=== PATIENT | male | born 1940 | race Caucasian/White ===

== ENCOUNTER 2017-10-31 14:14 | Emergency (ER) | payer MEDICARE ==
[2017-10-31 14:31] VITALS: BMI 22.1
--- NOTE | 2017-10-31 14:39 | ED PDOC ---
Arrival/HPI - General Time Seen by Provider: 10/31/17 14:19 Historian: Patient - History of Present Illness Narrative History of Present Illness (Text): 10/31/17 14:30 76 year old male, whose past medical history includes CVA 3 years ago and diabetes, presents to the emergency department complaining of diarrhea for the past 7 days. Patient reports he goes 4-5 times a day. Patient took Pepto-bismol with no relief. Patient states his PMD Dr. Peng told him to come to the ER for evaluation. Patient denies any fever, chills, chest pain, abdominal pain, nausea , vomiting, urinary symptoms, back pain, neck pain, headache, dizziness, or any other complaints. PMD: Dr. Peng Time/Duration: 1 week Symptom Onset: Gradual Symptom Course: Unchanged Activities at Onset: Light Context: Home Past Medical History - Provider Review Nursing Documentation Reviewed: Yes Family/Social History - Physician Review Nursing Documentation Reviewed: Yes Family/Social History: No Known Family HX Allergies/Home Meds Allergies/Adverse Reactions: Allergies No Known Allergies Allergy (Verified 10/31/17 14:30) Home Medications: Home Meds Medication Instructions Recorded Confirmed Unobtainable 10/31/17 10/31/17 Review of Systems - Physician Review All systems were reviewed & negative as marked: Yes - Review of Systems Constitutional: absent: Fevers, Other (Chills) Respiratory: absent: SOB Cardiovascular: absent: Chest Pain Gastrointestinal: Diarrhea. absent: Abdominal Pain, Nausea, Vomiting Genitourinary Male: absent: Dysuria, Frequency, Hematuria Musculoskeletal: absent: Back Pain, Neck Pain Neurological: absent: Headache, Dizziness Physical Exam Vital Signs Reviewed: Yes Vital Signs Temp Pulse Resp BP Pulse Ox 10/31/17 14:30 99.1 F 87 16 170/85 H 98 Temperature: Afebrile Blood Pressure: Hypertensive Pulse: Regular Respiratory Rate: Normal Appearance: Positive for: Well-Appearing, Non-Toxic, Comfortable Pain Distress: None Mental Status: Positive for: Alert and Oriented X 3 - Systems Exam Head: Present: Atraumatic, Normocephalic, Other (Left-sided facial weakness) Pupils: Present: PERRL, Other (Whiteness over left cornea) Extroacular Muscles: Present: EOMI Conjunctiva: Present: Normal Mouth: Present: Moist Mucous Membranes Neck: Present: Normal Range of Motion Respiratory/Chest: Present: Clear to Auscultation, Good Air Exchange. No: Respiratory Distress, Accessory Muscle Use Cardiovascular: Present: Regular Rate and Rhythm, Normal S1, S2. No: Murmurs Abdomen: Present: Normal Bowel Sounds. No: Tenderness, Distention, Peritoneal Signs Back: Present: Normal Inspection Upper Extremity: Present: Other (Left-sided contraction 0/5 strength). No: Cyanosis, Edema Lower Extremity: Present: Other (Full stregnth of lower extremities. Contraction of left foot ). No: Edema Neurological: Present: GCS=15, CN II-XII Intact, Speech Normal Skin: Present: Warm, Dry, Normal Color. No: Rashes Psychiatric: Present: Alert, Oriented x 3, Normal Insight, Normal Concentration Medical Decision Making ED Course and Treatment: 10/31/17 14:23 Impression: 76 year old female presents complaining of constant diarrhea for the past week. Plan: -- VBG -- Labs -- IV Fluids -- Fingerstick -- UA -- Reassess and disposition Progress Notes: 10/31/17 15:55 Spoke to , who says patient can follow up with him in the office during either his scheduled appointment in December, or sooner this week if necessary. 10/31/17 17:04 Patient states he feels better. Denies any dizziness or lightheadedness. No abdominal pain. No episodes of diarrhea in the ED. Will discharge home with PMD follow up in 1-2 days. - Lab Interpretations Lab Results: 10/31/17 15:10 10/31/17 15:10 Lab Results 10/31/17 15:10: Sodium 141, Chloride 102, Potassium 3.7, Carbon Dioxide 30, Anion Gap 12, BUN 8, Creatinine 0.8, Est GFR ( Amer) > 60, Est GFR (Non- Af Amer) > 60, Random Glucose 149 H, Calcium 9.5, Phosphorus 2.9, Magnesium 1.9 , Total Bilirubin 0.5, AST 27, ALT 27, Alkaline Phosphatase 68, Total Protein 7.2, Albumin 4.4, Globulin 2.9, Albumin/Globulin Ratio 1.5 10/31/17 15:10: pO2 52, VBG pH 7.35, VBG pCO2 55.0, VBG HCO3 30.4 H, VBG Total CO2 32.1 H, VBG O2 Sat (Calc) 89.4 H, VBG Base Excess 3.4 H, VBG Potassium 3.6, Sodium 140.0, Chloride 104.0, Glucose 154 H, Lactate 2.0, FiO2 21.0, Venous Blood Potassium 3.6 10/31/17 15:10: PT 11.6, INR 1.02, APTT 31.7 10/31/17 15:10: WBC 5.1, RBC 4.06, Hgb 12.7 L, Hct 37.4 L, MCV 92.1, MCH 31.3, MCHC 34.0, RDW 12.4, Plt Count 128, MPV 10.2, Gran % 65.1, Lymph % (Auto) 28.2, Simpson % (Auto) 5.7, Eos % (Auto) 0.8 L, Baso % (Auto) 0.2, Gran # 3.30, Lymph # ( Auto) 1.4, Simpson # (Auto) 0.3, Eos # (Auto) 0.0, Baso # (Auto) 0.01 I have reviewed the lab results: Yes - Medication Orders Current Medication Orders: Discontinued Medications Sodium Chloride (Sodium Chloride 0.9%) 1,000 mls @ 999 mls/hr IV .Q1H1M STA Stop: 10/31/17 15:41 Last Admin: 10/31/17 15:31 Dose: 999 mls/hr eMAR Start Stop Document 10/31/17 15:31 SUDOJ (Rec: 10/31/17 15:32 SUDOJ [id number]) Intravenous Solution Start Date 10/31/17 Start Time 15:32 - Scribe Statement The provider has reviewed the documentation as recorded by the Mikayla Cunningham Provider Scribe Attestation: All medical record entries made by the Scribhernan were at my direction and personally dictated by me. I have reviewed the chart and agree that the record accurately reflects my personal performance of the history, physical exam, medical decision making, and the department course for this patient. I have also personally directed, reviewed, and agree with the discharge instructions and disposition. Disposition/Present on Arrival - Present on Arrival Any Indicators Present on Arrival: No - Disposition Have Diagnosis and Disposition been Completed?: Yes Diagnosis: Diarrhea Disposition: HOME/ ROUTINE Disposition Time: 17:06 Patient Plan: Discharge Patient Problems: Current Active Problems Problem Status Onset Diarrhea Acute Condition: IMPROVED Discharge Instructions (ExitCare): Diarrhea in Adolescents and Adults Additional Instructions: ARLEY SALAZAR, thank you for letting us take care of you today. Your provider was Luke Heart DO and you were treated for DIARRHEA. The emergency medical care you received today was directed at your acute symptoms. If you were prescribed any medication, please fill it and take as directed. It may take several days for your symptoms to resolve. Return to the Emergency Department if your symptoms worsen, do not improve, or if you have any other problems. Please contact your doctor or call one of the physicians/clinics you have been referred to that are listed on the Patient Visit Information form that is included in your discharge packet. Bring any paperwork you were given at discharge with you along with any medications you are taking to your follow up visit. Our treatment cannot replace ongoing medical care by a primary care provider outside of the emergency department. Thank you for allowing the [facility] team to be part of your care today. If you had an X-Ray or CT scan: A Radiologist will review the ED reading if any change in treatment is needed we will contact you. If you had a blood, urine, or wound culture: It will take several days for the results, if any change in treatment is needed we will contact you. If you had an STI test: It will take 48 hours for the results. Please call after 1 week if you have not heard back. Referrals: Gage Peng MD [Staff Provider] - Follow up with primary Forms: [employer] ([place])
[2017-10-31] MEDS ORDERED: Sodium Chloride 0.9% 1,000 ML IV STA (14:41)
[2017-10-31 15:24] LABS: VENOUS BLOOD GAS BASE EXCESS 3.4 mmol/L (0.0-2.0); VENOUS BLOOD GAS PO2 52 mm/Hg (30-55); VENOUS BLOOD PH 7.35 (7.32-7.43)
[2017-10-31 15:34] LABS: ALB/GLOB RATIO 1.5 (1.1-1.8); ALBUMIN 4.4 g/dL (3.0-4.8); ALT/SGPT 27 U/L (7-56); AST/SGOT 27 U/L (17-59); BLOOD UREA NITROGEN 8 mg/dL (7-21); CALCIUM 9.5 mg/dL (8.4-10.5); GFR NON-AFRICAN AMERICAN > 60
[2017-10-31 15:40] LABS: BASO # 0.01 K/mm3 (0.0-2.0); BASO % 0.2 % (0.0-3.0); EOS % 0.8 % (1.5-5.0); GRAN # 3.3 (1.4-6.5); GRAN % 65.1 % (50.0-68.0); HEMOGLOBIN 12.7 g/dL (14.0-18.0); INR 1.02; LYMPH # 1.4 (1.2-3.4); LYMPH % 28.2 % (22.0-35.0); MEAN CELL VOLUME 92.1 fl (80.0-105.0); MEAN CORPUSCULAR HEMOGLOBIN 31.3 pg (25.0-35.0); MEAN PLATELET VOLUME 10.2 fl (7.0-11.0); MONO # 0.3 (0.1-0.6); MONO % 5.7 % (1.0-6.0); PARTIAL THROMBOPLASTIN TIME 31.7 Seconds (25.1-36.5); PROTHROMBIN TIME 11.6 SECONDS (9.4-12.5); RBC 4.06 10^6/uL (3.5-6.1); RED CELL DISTRIBUTION WIDTH 12.4 % (11.5-14.5); WHITE BLOOD COUNT 5.1 10^3/ul (4.5-11.0)
[2017-11-01 00:02] VITALS: RESP 19; O2SAT 95
[2017-11-01 01:08] VITALS: BP 161/77; PULSE 69; TEMP 98.2
== END 2017-11-01 02:25 | disposition home or self-care (01) ==
LOC: ED 14:14
DX: R19.7 Diarrhea, unspecified (principal); E11.9 Type 2 diabetes mellitus without complications; Z86.73 Personal history of transient ischemic attack (TIA), and cerebral infarction without residual deficits
CPT/HCPCS: 80053; 82803; 83735; 84100; 85025; 85610; 85730; 99284; J7030

== ENCOUNTER 2018-04-17 08:57 | Outpatient (CLI) | payer MEDICARE | END 2018-04-17 08:58 | disposition home or self-care (01) | LOC: RAD 08:57 ==